=== PATIENT | male | born 1980 | race Caucasian/White ===

== ENCOUNTER 2019-01-15 21:06 | Inpatient (IN) | payer OTHER ==
[2019-01-15 22:17] LABS: ADD MAN DIFF? NO
[2019-01-15 22:19] LABS: BASOPHIL # 0.1 10^3/ul (0.0-0.1); BASOPHILS % 0.3 % (0.0-2.0); EOSINOPHILS % 0.1 % (0.0-7.0); HEMATOCRIT 45.3 % (42.0-52.0); HEMOGLOBIN 16.2 g/dl (14.0-18.0); LYMPHOCYTES # 1.7 10^3/ul (0.8-2.9); LYMPHOCYTES % 9.6 % (15.0-51.0); MEAN CORPUSCULAR HEMOGLOBIN 30.9 pg (29.0-33.0); MEAN CORPUSCULAR HGB CONC 35.8 g/dl (32.0-37.0); MEAN CORPUSCULAR VOLUME 86.5 fl (82.0-101.0); MEAN PLATELET VOLUME 10.6 fl (7.4-10.4); MONOCYTE # 1.1 10^3/ul (0.3-0.9); MONOCYTES % 5.9 % (0.0-11.0); NEUTROPHIL # 14.8 10^3/ul (1.6-7.5); NEUTROPHILS % 83.6 % (39.0-77.0); PLATELET COUNT 226 10^3/UL (140-415); RED BLOOD COUNT 5.24 10^6/ul (4.70-6.10); RED CELL DISTRIBUTION WIDTH 12.5 % (11.5-14.5)
[2019-01-15 22:19] LABS: WHITE BLOOD COUNT 17.7 10^3/ul (4.8-10.8)
[2019-01-15] MEDS: ONDANSETRON 4 MG INJ IV (22:25)
[2019-01-15] MEDS: SOD CHLORIDE 0.9% 1,000 ML IV (22:25)
[2019-01-15] MEDS: morphine 4 MG/ML VIAL IV (22:25)
[2019-01-15 22:46] LABS: ALANINE AMINOTRANSFERASE 43 IU/L (13-69); ALBUMIN 5.2 g/dl (3.3-4.9); ALKALINE PHOSPHATASE 167 IU/L (42-121); ASPARTATE AMINO TRANSFERASE 34 IU/L (15-46); BILIRUBIN,INDIRECT 0.9 mg/dl (0-1.1); BILIRUBIN,TOTAL 0.9 mg/dl (0.2-1.3); LIPASE 148 U/L (23-300); TOTAL PROTEIN 8.1 g/dl (6.1-8.1)
[2019-01-15 23:01] LABS: ANION GAP 21 (5-13); BLOOD UREA NITROGEN 11 mg/dl (7-20); CALCIUM 9.8 mg/dl (8.4-10.2); CARBON DIOXIDE 19 mmol/L (21-31); CHLORIDE 96 mmol/L (97-110); CREATININE 0.98 mg/dl (0.61-1.24); Estimated GFR > 60 mL/min (>60); GLUCOSE 385 mg/dl (70-220); POTASSIUM 3.8 mmol/L (3.5-5.1); SODIUM 136 mmol/L (135-144)
[2019-01-15 23:11] LABS: TROPONIN-I < 0.012 ng/ml (0.000-0.120)
[2019-01-15 23:37] LABS: URINE BLOOD (Dip) POC 1+ (NEGATIVE); URINE KETONES (Dip) POC 4+ (NEGATIVE); URINE LEUKOCYTE EST (Dip) POC Negative (NEGATIVE); URINE NITRITE (Dip) POC Negative (NEGATIVE); URINE TOTAL PROTEIN POC 1+ (NEGATIVE)
[2019-01-15] MEDS: LACTATED RINGER'S 1,000 ML IV (23:40)
[2019-01-16 00:22] LABS: MODE ROOM AIR; MetHgb Venous 0.2 %; Sample Type Blood venous; Site VENOUS LINE; Venous COHb 0.7 %; Venous Oxygen Sat 61.6 mmHG (55.0-75.0); Venous Total Hemglobin 16.2 g/dl
[2019-01-16] MEDS ORDERED: NACL 0.9% 3 ML SYG IV (01:00)
[2019-01-16] MEDS ORDERED: ACETAMINOPHEN 325 MG TAB PO (01:00)
[2019-01-16] MEDS ORDERED: ONDANSETRON 4 MG INJ IV (01:00)
[2019-01-16] MEDS ORDERED: morphine 2 MG INJ IV (01:00)
[2019-01-16] MEDS ORDERED: HYDROCODONE/APAP (5/325) TAB PO (01:00)
[2019-01-16 01:42] LABS: ETHANOL < 10.0 mg/dl (0-0)
[2019-01-16] MEDS ORDERED: GLUCOSE GEL 15 GRAM TUBE BUCCAL (02:00)
[2019-01-16] MEDS ORDERED: GLUCAGON 1 MG INJ IM (02:00)
[2019-01-16] MEDS ORDERED: GLUCOSE GEL 15 GRAM TUBE PO ×2 (02:00)
[2019-01-16] MEDS ORDERED: DEXTROSE 50% 50 ML SYRINGE IV ×2 (02:00)
[2019-01-16] MEDS: AL HYDROX/MG HYDROX/SIMETH 30 ML CUP PO (03:07)
[2019-01-16] MEDS: INSULIN GLARGINE [LANTus] (100 UNITS/ML) SYG SC (03:08)
[2019-01-16] MEDS: INSULIN ASPART [NOVOLOG] 3 ML PEN SC ×4 (03:09→13:00)
[2019-01-16] MEDS: LORAZEPAM 2 MG INJ IV (03:23)
[2019-01-16] MEDS: ONDANSETRON 4 MG INJ IV (03:24)
[2019-01-16] MEDS: FAMOTIDINE 20 MG INJ IV ×3 (05:23→20:02)
[2019-01-16 05:46] LABS: ADD MAN DIFF? NO
[2019-01-16 05:50] LABS: BASOPHIL # 0.1 10^3/ul (0.0-0.1); BASOPHILS % 0.5 % (0.0-2.0); EOSINOPHILS % 0.3 % (0.0-7.0); HEMATOCRIT 40.4 % (42.0-52.0); HEMOGLOBIN 14.7 g/dl (14.0-18.0); LYMPHOCYTES # 2.4 10^3/ul (0.8-2.9); LYMPHOCYTES % 17.8 % (15.0-51.0); MEAN CORPUSCULAR HEMOGLOBIN 31.3 pg (29.0-33.0); MEAN CORPUSCULAR HGB CONC 36.4 g/dl (32.0-37.0); MEAN CORPUSCULAR VOLUME 86.1 fl (82.0-101.0); MEAN PLATELET VOLUME 10.7 fl (7.4-10.4); MONOCYTES % 7.5 % (0.0-11.0); NEUTROPHIL # 9.8 10^3/ul (1.6-7.5); NEUTROPHILS % 73.4 % (39.0-77.0); PLATELET COUNT 201 10^3/UL (140-415); RED BLOOD COUNT 4.69 10^6/ul (4.70-6.10); RED CELL DISTRIBUTION WIDTH 12.7 % (11.5-14.5)
[2019-01-16 05:50] LABS: WHITE BLOOD COUNT 13.4 10^3/ul (4.8-10.8)
[2019-01-16 06:20] LABS: CREATINE KINASE 330 IU/L (23-200)
[2019-01-16 06:23] LABS: ALANINE AMINOTRANSFERASE 35 IU/L (13-69); ALBUMIN 4.1 g/dl (3.3-4.9); ALBUMIN/GLOBULIN RATIO 1.51; ALKALINE PHOSPHATASE 121 IU/L (42-121); ANION GAP 15 (5-13); ASPARTATE AMINO TRANSFERASE 33 IU/L (15-46); BLOOD UREA NITROGEN 8 mg/dl (7-20); CALCIUM 8.7 mg/dl (8.4-10.2); CARBON DIOXIDE 23 mmol/L (21-31); CHLORIDE 103 mmol/L (97-110); CHOL/HDL RATIO 8.2 RATIO; CHOLESTEROL 281 mg/dl (100-200); CREATININE 0.75 mg/dl (0.61-1.24); Estimated GFR > 60 mL/min (>60); GLUCOSE 226 mg/dl (70-220); HDL CHOLESTEROL 34 mg/dl (27-67); MAGNESIUM 2.3 mg/dl (1.7-2.5); POTASSIUM 3.3 mmol/L (3.5-5.1); SODIUM 141 mmol/L (135-144); TOTAL PROTEIN 6.8 g/dl (6.1-8.1)
[2019-01-16 06:25] LABS: CK INDEX 0.5; TROPONIN-I < 0.012 ng/ml (0.000-0.120)
[2019-01-16 06:31] LABS: LDL CHOLESTEROL,CALCULATED 115 mg/dl; TRIGLYCERIDES 659 mg/dl (0-149)
[2019-01-16] MEDS: ACCU-CHEK XX (07:33)
[2019-01-16] MEDS: SOD CHLORIDE 0.9% 1,000 ML IV ×4 (07:34→21:22)
[2019-01-16 07:53] LABS: HEMOGLOBIN A1C 9.7 % (0-5.9)
[2019-01-16 09:53] LABS: CREATINE KINASE 272 IU/L (23-200)
[2019-01-16 09:54] LABS: ANION GAP 11 (5-13); BLOOD UREA NITROGEN 7 mg/dl (7-20); CALCIUM 8.5 mg/dl (8.4-10.2); CARBON DIOXIDE 24 mmol/L (21-31); CHLORIDE 104 mmol/L (97-110); CREATININE 0.68 mg/dl (0.61-1.24); Estimated GFR > 60 mL/min (>60); GLUCOSE 216 mg/dl (70-220); POTASSIUM 3.7 mmol/L (3.5-5.1); SODIUM 139 mmol/L (135-144)
[2019-01-16 10:06] LABS: CK INDEX 0.5; CK-MB 1.32 ng/ml (0.0-2.4); TROPONIN-I < 0.012 ng/ml (0.000-0.120)
[2019-01-16] MEDS: POTASSIUM CHLORIDE (SR) 20 MEQ TAB PO (10:11)
[2019-01-16] MEDS: MULTIVITAMINS 10 ML, THIAMINE 100 MG, FOLIC ACID 1 MG in SOD CHLORIDE 0.9% 1,000 ML IVPB (10:11)
[2019-01-16 12:49] LABS: ANION GAP 11 (5-13); Estimated GFR > 60 mL/min (>60)
[2019-01-16 12:56] LABS: BLOOD UREA NITROGEN 6 mg/dl (7-20); CALCIUM 8.7 mg/dl (8.4-10.2); CARBON DIOXIDE 24 mmol/L (21-31); CHLORIDE 105 mmol/L (97-110); CREATININE 0.69 mg/dl (0.61-1.24); GLUCOSE 186 mg/dl (70-220); POTASSIUM 3.7 mmol/L (3.5-5.1); SODIUM 140 mmol/L (135-144)
[2019-01-16] MEDS: METOCLOPRAMIDE 10 MG INJ IV ×2 (18:49→23:37)
[2019-01-16 18:59] LABS: ANION GAP 12 (5-13); BLOOD UREA NITROGEN 5 mg/dl (7-20); CALCIUM 8.4 mg/dl (8.4-10.2); CARBON DIOXIDE 20 mmol/L (21-31); CHLORIDE 107 mmol/L (97-110); CREATININE 0.68 mg/dl (0.61-1.24); Estimated GFR > 60 mL/min (>60); GLUCOSE 189 mg/dl (70-220); POTASSIUM 3.7 mmol/L (3.5-5.1); SODIUM 139 mmol/L (135-144)
[2019-01-16] MEDS: PANTOPRAZOLE 40 MG INJ IV (20:02)
[2019-01-16] MEDS: Insulin NOVOLOG SS MILD Algorithm (SS with meals and bedtime) SC (20:03)
[2019-01-16] MEDS ORDERED: INSULIN ASPART [NOVOLOG] 3 ML PEN SC (21:00)
[2019-01-16] MEDS: DOCUSATE SODIUM 100 MG CAP PO (21:21)
[2019-01-16 23:45] LABS: AMPHETAMINE/METHAMPHETAMINE Negative (NEGATIVE); BARBITURATES Negative (NEGATIVE); BENZODIAZEPINES Negative (NEGATIVE); CANNABINOIDS Positive (NEGATIVE); COCAINE Positive (NEGATIVE); OPIATES Negative (NEGATIVE)
[2019-01-17] MEDS: ACCU-CHEK XX (01:09)
[2019-01-17] MEDS: METOCLOPRAMIDE 10 MG INJ IV ×4 (05:53→23:59)
[2019-01-17] MEDS: SOD CHLORIDE 0.9% 1,000 ML IV (05:55)
[2019-01-17 06:50] LABS: ADD MAN DIFF? NO
[2019-01-17 06:55] LABS: BASOPHIL # 0.1 10^3/ul (0.0-0.1); BASOPHILS % 0.6 % (0.0-2.0); EOSINOPHILS # 0.1 10^3/ul (0.0-0.5); EOSINOPHILS % 0.6 % (0.0-7.0); HEMATOCRIT 39.6 % (42.0-52.0); HEMOGLOBIN 13.7 g/dl (14.0-18.0); LYMPHOCYTES # 1.7 10^3/ul (0.8-2.9); LYMPHOCYTES % 18.8 % (15.0-51.0); MEAN CORPUSCULAR HEMOGLOBIN 31.5 pg (29.0-33.0); MEAN CORPUSCULAR HGB CONC 34.6 g/dl (32.0-37.0); MEAN PLATELET VOLUME 10.9 fl (7.4-10.4); MONOCYTE # 0.7 10^3/ul (0.3-0.9); MONOCYTES % 8.2 % (0.0-11.0); NEUTROPHIL # 6.3 10^3/ul (1.6-7.5); NEUTROPHILS % 71.3 % (39.0-77.0); PLATELET COUNT 189 10^3/UL (140-415); RED BLOOD COUNT 4.35 10^6/ul (4.70-6.10); RED CELL DISTRIBUTION WIDTH 13.2 % (11.5-14.5)
[2019-01-17 06:55] LABS: WHITE BLOOD COUNT 8.8 10^3/ul (4.8-10.8)
[2019-01-17 07:17] LABS: ALANINE AMINOTRANSFERASE 36 IU/L (13-69); ALBUMIN 3.6 g/dl (3.3-4.9); ALBUMIN/GLOBULIN RATIO 1.33; ALKALINE PHOSPHATASE 105 IU/L (42-121); ANION GAP 14 (5-13); ASPARTATE AMINO TRANSFERASE 25 IU/L (15-46); BILIRUBIN,INDIRECT 0.9 mg/dl (0-1.1); BILIRUBIN,TOTAL 0.9 mg/dl (0.2-1.3); BLOOD UREA NITROGEN 6 mg/dl (7-20); CALCIUM 8.8 mg/dl (8.4-10.2); CARBON DIOXIDE 21 mmol/L (21-31); CHLORIDE 108 mmol/L (97-110); CREATININE 0.71 mg/dl (0.61-1.24); Estimated GFR > 60 mL/min (>60); GLUCOSE 199 mg/dl (70-220); POTASSIUM 3.7 mmol/L (3.5-5.1); SODIUM 143 mmol/L (135-144); TOTAL PROTEIN 6.3 g/dl (6.1-8.1)
[2019-01-17] MEDS: FAMOTIDINE 20 MG INJ IV (08:31)
[2019-01-17] MEDS: PANTOPRAZOLE 40 MG INJ IV ×2 (08:33→20:09)
[2019-01-17] MEDS: Insulin NOVOLOG SS MILD Algorithm (SS with meals and bedtime) SC ×4 (10:07→20:57)
[2019-01-17] MEDS: SUCRALFATE (100 MG/ML) 10ML CUP PO ×3 (12:07→20:09)
[2019-01-17] MEDS: INSULIN ASPART [NOVOLOG] 3 ML PEN SC ×2 (12:22→17:30)
[2019-01-17] MEDS: INSULIN GLARGINE [LANTus] (100 UNITS/ML) SYG SC (12:22)
[2019-01-17] MEDS: DOCUSATE SODIUM 100 MG CAP PO (20:11)
[2019-01-17] MEDS ORDERED: PRAMOXINE/HC 10 GM RECT FOAM PR (22:00)
[2019-01-18 05:21] LABS: ADD MAN DIFF? NO
[2019-01-18 05:24] LABS: BASOPHIL # 0.1 10^3/ul (0.0-0.1); BASOPHILS % 0.6 % (0.0-2.0); EOSINOPHILS # 0.1 10^3/ul (0.0-0.5); EOSINOPHILS % 0.7 % (0.0-7.0); HEMATOCRIT 41.3 % (42.0-52.0); HEMOGLOBIN 14.6 g/dl (14.0-18.0); LYMPHOCYTES # 2.2 10^3/ul (0.8-2.9); LYMPHOCYTES % 27.1 % (15.0-51.0); MEAN CORPUSCULAR HGB CONC 35.4 g/dl (32.0-37.0); MEAN CORPUSCULAR VOLUME 87.7 fl (82.0-101.0); MEAN PLATELET VOLUME 10.6 fl (7.4-10.4); MONOCYTE # 0.9 10^3/ul (0.3-0.9); MONOCYTES % 11.5 % (0.0-11.0); NEUTROPHIL # 4.9 10^3/ul (1.6-7.5); NEUTROPHILS % 59.4 % (39.0-77.0); PLATELET COUNT 203 10^3/UL (140-415); RED BLOOD COUNT 4.71 10^6/ul (4.70-6.10); RED CELL DISTRIBUTION WIDTH 13.1 % (11.5-14.5)
[2019-01-18 05:24] LABS: WHITE BLOOD COUNT 8.2 10^3/ul (4.8-10.8)
[2019-01-18 06:16] LABS: ALANINE AMINOTRANSFERASE 32 IU/L (13-69); ALBUMIN/GLOBULIN RATIO 1.33; ALKALINE PHOSPHATASE 110 IU/L (42-121); ANION GAP 9 (5-13); ASPARTATE AMINO TRANSFERASE 26 IU/L (15-46); BILIRUBIN,INDIRECT 0.9 mg/dl (0-1.1); BILIRUBIN,TOTAL 0.9 mg/dl (0.2-1.3); BLOOD UREA NITROGEN 7 mg/dl (7-20); CALCIUM 9.1 mg/dl (8.4-10.2); CARBON DIOXIDE 28 mmol/L (21-31); CHLORIDE 106 mmol/L (97-110); CREATININE 0.75 mg/dl (0.61-1.24); Estimated GFR > 60 mL/min (>60); GLUCOSE 206 mg/dl (70-220); POTASSIUM 3.8 mmol/L (3.5-5.1); SODIUM 143 mmol/L (135-144)
[2019-01-18] MEDS: METOCLOPRAMIDE 10 MG INJ IV ×2 (06:27→12:34)
[2019-01-18] MEDS: PRAMOXINE 1% 15 GM RECT FOAM PR (07:50)
[2019-01-18] MEDS: PANTOPRAZOLE 40 MG INJ IV (08:11)
[2019-01-18] MEDS: INSULIN GLARGINE [LANTus] (100 UNITS/ML) SYG SC (08:12)
[2019-01-18] MEDS: Insulin NOVOLOG SS MILD Algorithm (SS with meals and bedtime) SC ×2 (08:13→12:33)
[2019-01-18] MEDS: INSULIN ASPART [NOVOLOG] 3 ML PEN SC ×2 (08:13→12:34)
[2019-01-18] MEDS: SUCRALFATE (100 MG/ML) 10ML CUP PO ×2 (08:16→12:34)
[2019-01-18] MEDS: DOCUSATE SODIUM 100 MG CAP PO (08:24)
[2019-01-18] MEDS: BISACODYL (EC) 5 MG TAB PO (08:24)
[2019-01-18] MEDS: AL HYDROX/MG HYDROX/SIMETH 30 ML CUP PO (08:24)
[2019-01-18] MEDS: POLYETHYLENE GLYCOL 17 GM PACKET PO (10:03)
[2019-01-18] MEDS: CLOTRIMAZOLE 1% 30 GM CR TOP (13:39)
[2019-01-19 14:20] LABS: INSULIN AUTOANTIBODY <0.4 U/mL (<0.4)
== END 2019-01-18 14:45 | disposition home or self-care (01) | DRG 638 ==
LOC: E/R 21:06 → 5EC 01-16 18:14 → TEL 01-16 00:40
PROC: 0DB58ZX Excision of Esophagus, Via Natural or Artificial Opening Endoscopic, Diagnostic (ICD-10-PCS; principal; 2019-01-16 15:57)
PROC: 0DB68ZX Excision of Stomach, Via Natural or Artificial Opening Endoscopic, Diagnostic (ICD-10-PCS; 2019-01-16 15:57)
DX: E11.10 Type 2 diabetes mellitus with ketoacidosis without coma (principal); K22.10 Ulcer of esophagus without bleeding; K76.0 Fatty (change of) liver, not elsewhere classified; K26.9 Duodenal ulcer, unspecified as acute or chronic, without hemorrhage or perforation; K29.70 Gastritis, unspecified, without bleeding; N47.6 Balanoposthitis; I10 Essential (primary) hypertension; E78.5 Hyperlipidemia, unspecified; F10.10 Alcohol abuse, uncomplicated; Y90.0 Blood alcohol level of less than 20 mg/100 ml; K44.9 Diaphragmatic hernia without obstruction or gangrene; Z79.4 Long term (current) use of insulin; Z98.1 Arthrodesis status
CPT/HCPCS: 36415; 71045; 76705; 80048; 80053; 80061; 80076; 80307; 81003; 82306; 82550; 82553; 82803; 82962; 83036; 83690; 83735; 84443; 84484; 85025; 86337; 88305; 88313; 93005; 96374; 96375; 99285-25

== ENCOUNTER 2019-03-22 06:51 | Emergency (ER) | payer OTHER ==
[2019-03-22] MEDS: SOD CHLORIDE 0.9% 500 ML IV (07:31)
[2019-03-22] MEDS: ACETAMINOPHEN 325 MG TAB PO (07:35)
[2019-03-22] MEDS: ONDANSETRON 4 MG INJ IV (07:35)
[2019-03-22 07:42] LABS: ADD MAN DIFF? NO
[2019-03-22 07:50] LABS: BASOPHIL # 0.1 10^3/ul (0.0-0.1); BASOPHILS % 0.5 % (0.0-2.0); EOSINOPHILS # 0.2 10^3/ul (0.0-0.5); EOSINOPHILS % 1.9 % (0.0-7.0); HEMATOCRIT 45.2 % (42.0-52.0); HEMOGLOBIN 14.7 g/dl (14.0-18.0); LYMPHOCYTES # 1.6 10^3/ul (0.8-2.9); LYMPHOCYTES % 17.5 % (15.0-51.0); MEAN CORPUSCULAR HEMOGLOBIN 31.1 pg (29.0-33.0); MEAN CORPUSCULAR HGB CONC 32.5 g/dl (32.0-37.0); MEAN CORPUSCULAR VOLUME 95.8 fl (82.0-101.0); MEAN PLATELET VOLUME 10.2 fl (7.4-10.4); MONOCYTE # 0.7 10^3/ul (0.3-0.9); MONOCYTES % 7.3 % (0.0-11.0); NEUTROPHIL # 6.8 10^3/ul (1.6-7.5); NEUTROPHILS % 72.4 % (39.0-77.0); PLATELET COUNT 229 10^3/UL (140-415); RED BLOOD COUNT 4.72 10^6/ul (4.70-6.10); RED CELL DISTRIBUTION WIDTH 12.9 % (11.5-14.5)
[2019-03-22 07:50] LABS: WHITE BLOOD COUNT 9.4 10^3/ul (4.8-10.8)
[2019-03-22 08:15] LABS: ALANINE AMINOTRANSFERASE 38 IU/L (13-69); ALBUMIN 4.4 g/dl (3.3-4.9); ALBUMIN/GLOBULIN RATIO 1.57; ALKALINE PHOSPHATASE 82 IU/L (42-121); ANION GAP 6 (5-13); ASPARTATE AMINO TRANSFERASE 27 IU/L (15-46); BILIRUBIN,INDIRECT 0.4 mg/dl (0-1.1); BILIRUBIN,TOTAL 0.4 mg/dl (0.2-1.3); BLOOD UREA NITROGEN 10 mg/dl (7-20); CALCIUM 9.5 mg/dl (8.4-10.2); CARBON DIOXIDE 30 mmol/L (21-31); CHLORIDE 105 mmol/L (97-110); CREATININE 0.83 mg/dl (0.61-1.24); Estimated GFR > 60 mL/min (>60); GLUCOSE 105 mg/dl (70-220); POTASSIUM 4.6 mmol/L (3.5-5.1); SODIUM 141 mmol/L (135-144); TOTAL PROTEIN 7.2 g/dl (6.1-8.1)
[2019-03-22 08:24] LABS: ADD UMIC NO; UR ASCORBIC ACID NEGATIVE (NEGATIVE); UR BILIRUBIN (Dip) NEGATIVE (NEGATIVE); UR BLOOD (Dip) NEGATIVE (NEGATIVE); UR CLARITY CLEAR (CLEAR); UR COLOR YELLOW (YELLOW); UR GLUCOSE (Dip) NEGATIVE (NEGATIVE); UR KETONES (Dip) NEGATIVE (NEGATIVE); UR LEUKOCYTE ESTERASE (Dip) NEGATIVE Leu/ul (NEGATIVE); UR NITRITE (Dip) NEGATIVE (NEGATIVE); UR SPECIFIC GRAVITY (Dip) 1.011 (1.003-1.030); UR TOTAL PROTEIN (Dip) NEGATIVE (NEGATIVE); UR UROBILINOGEN (Dip) NEGATIVE (NEGATIVE)
== END 2019-03-22 08:40 | disposition home or self-care (01) ==
LOC: FTE 08:40
DX: M54.5 Low back pain (principal); I10 Essential (primary) hypertension; E11.9 Type 2 diabetes mellitus without complications; Z79.4 Long term (current) use of insulin; Z87.891 Personal history of nicotine dependence
CPT/HCPCS: 76775; 80053; 81003; 85025; 96361; 96374; 99285-25